=== PATIENT | female | born 1960 | race African-American/Black ===

== ENCOUNTER 2017-09-19 01:16 | Emergency (ER) | payer MEDICAID ==
[~2017-09-19] VITALS: Ht 170.2 cm; Wt 68.0 kg
[2017-09-19 01:18] VITALS: BP 137/90
[2017-09-19] MEDS ORDERED: IBUPROFEN 600 MG TAB PO ONE (03:35)
[2017-09-19 05:11] VITALS: BP 137/90
== END 2017-09-19 05:11 | disposition home or self-care (01) ==
LOC: MED 01:16
DX: R11.2 Nausea with vomiting, unspecified (principal); R10.13 Epigastric pain; E11.9 Type 2 diabetes mellitus without complications; F17.210 Nicotine dependence, cigarettes, uncomplicated
CPT/HCPCS: 99283